=== PATIENT | female | born 1930 | race Caucasian/White ===

== ENCOUNTER 2017-01-09 18:55 | Inpatient (IN) | payer OTHER ==
[~2017-01-09] VITALS: Ht 152.4 cm; Wt 77.1 kg
[~2017-01-09 18:55] MED LIST: ANT12.5 PO; ASPIR 8181 MG; BACDS PO; DONEPEZIL HYDRO10 M2 PO; ENALAPRIL10 M1 PO; LAC PO; LASIX20 MG PO; LOT1C TOP; OMEPRAZOLE DR20 M1 PO; ONE-A-DAY WOMEN1 TAB PO; SIMVASTATIN40 M1 PO; STOOL SOFTENER100 MG PO
[2017-01-09 19:54] LABS: PLATELET COUNT 170 x10^3mcL (130-400)
[2017-01-09 19:58] LABS: BASOPHIL % 2.5 % (0-2); RED CELL DISTRIBUTION WIDTH 17.9 % (11.5-14.5)
[2017-01-09 20:07] LABS: CARBON DIOXIDE 16.9 mmol/L (21-32); CHLORIDE SERUM 101 mmol/L (98-107); GLUCOSE SERUM 133 mg/dL (74-106); POTASSIUM SERUM 4.7 mmol/L (3.5-5.1); SODIUM SERUM 137 mmol/L (136-145)
[2017-01-09 20:24] LABS: ALBUMIN 3.6 g/dL (3.4-5.0); ALKALINE PHOSPHATASE 153 U/L (46-116); ALT/SGPT 2157 U/L (14-59); BILIRUBIN TOTAL 2.1 mg/dL (0.20-1.00); TOTAL PROTEIN, SERUM 7.1 g/dL (6.4-8.2)
[2017-01-09] MEDS ORDERED: LIPI20 PO (21:05)
[2017-01-09 21:20] LABS: AST/SGOT 4390 U/L (15-37)
[2017-01-09 22:08] VITALS: BP 105/69
[2017-01-09 22:13] VITALS: BP 105/69
[2017-01-10 01:08] LABS: UA SPECIFIC GRAVITY >=1.030 (1.005-1.035); microscopic required? YES; urine erythrocyte TRACE (NEGATIVE)
[2017-01-10 01:31] LABS: CHOLESTEROL/HDL RATIO 4.5
[2017-01-10 01:34] LABS: T3 TOTAL 0.51 ng/mL
[2017-01-10 01:55] LABS: FREE T4 1.31 ng/dL (0.76-1.46); FREE THYROXINE INDEX 1.6 ug/dL (1.4-4.5); T4(THYROXINE) 4.7 ug/dL (4.7-13.3)
[2017-01-10 03:11] LABS: PLATELET COUNT 153 x10^3mcL (130-400)
[2017-01-10 03:18] LABS: RED CELL DISTRIBUTION WIDTH 16.5 % (11.5-14.5)
[2017-01-10 03:19] LABS: CALCIUM 8.2 mg/dL (8.5-10.1); CHLORIDE SERUM 105 mmol/L (98-107); CREATININE SERUM 2.7 mg/dL (0.6-1.0); GLUCOSE SERUM 110 mg/dL (74-106); MAGNESIUM 2.2 mg/dL (1.8-2.4); PHOSPHOROUS 5.5 mg/dL (2.5-4.9); POTASSIUM SERUM 4.8 mmol/L (3.5-5.1); SODIUM SERUM 137 mmol/L (136-145)
[2017-01-10 04:59] VITALS: BP 96/64
[2017-01-10 09:32] VITALS: BP 115/64
[2017-01-10 12:10] VITALS: BP 92/57
[2017-01-10 13:56] VITALS: BP 86/60
[2017-01-10 17:24] VITALS: BP 106/67
[2017-01-10 20:00] VITALS: BP 116/78
[2017-01-11 05:23] VITALS: BP 99/57
[2017-01-11 06:57] LABS: BASOPHIL % 0.2 % (0-2); PLATELET COUNT 152 x10^3mcL (130-400)
[2017-01-11 07:15] LABS: MAGNESIUM 2.5 mg/dL (1.8-2.4); PHOSPHOROUS 7.6 mg/dL (2.5-4.9)
[2017-01-11 07:53] LABS: CARBON DIOXIDE 15.5 mmol/L (21-32); CHLORIDE SERUM 102 mmol/L (98-107); GLUCOSE SERUM 88 mg/dL (74-106); POTASSIUM SERUM 4.9 mmol/L (3.5-5.1); SODIUM SERUM 138 mmol/L (136-145)
[2017-01-11 08:00] LABS: ALBUMIN 3.2 g/dL (3.4-5.0); ALKALINE PHOSPHATASE 145 U/L (46-116); ALT/SGPT 2274 U/L (14-59); BILIRUBIN TOTAL 2.4 mg/dL (0.20-1.00); CALCIUM 8.2 mg/dL (8.5-10.1); CREATININE SERUM 3.5 mg/dL (0.6-1.0); TOTAL PROTEIN, SERUM 6.3 g/dL (6.4-8.2)
[2017-01-11 08:43] LABS: AST/SGOT 3623 U/L (15-37)
[2017-01-11 09:41] VITALS: BP 92/47
[2017-01-11 13:06] VITALS: BP 97/60
[2017-01-11 17:46] VITALS: BP 84/53
[2017-01-11 18:21] VITALS: BP 90/56
[2017-01-11 22:02] VITALS: BP 108/56
[2017-01-12 05:47] VITALS: BP 91/54
[2017-01-12 06:16] LABS: CALCIUM 7.8 mg/dL (8.5-10.1); CARBON DIOXIDE 15.6 mmol/L (21-32); CHLORIDE SERUM 105 mmol/L (98-107); CREATININE SERUM 3.4 mg/dL (0.6-1.0); GLUCOSE SERUM 118 mg/dL (74-106); MAGNESIUM 2.4 mg/dL (1.8-2.4); PHOSPHOROUS 5.5 mg/dL (2.5-4.9); POTASSIUM SERUM 4.5 mmol/L (3.5-5.1); SODIUM SERUM 139 mmol/L (136-145)
[2017-01-12 07:39] LABS: BASOPHIL % 0.5 % (0-2)
[2017-01-12 07:40] LABS: PLATELET COUNT 115 x10^3mcL (130-400); RED CELL DISTRIBUTION WIDTH 18.1 % (11.5-14.5)
[2017-01-12 13:56] VITALS: BP 91/57
[2017-01-12 18:16] VITALS: BP 86/49
[2017-01-12 21:17] VITALS: BP 93/56
[2017-01-13 06:56] VITALS: BP 99/55
[2017-01-13 08:47] LABS: BASOPHIL % 0.4 % (0-2)
[2017-01-13 08:48] LABS: PLATELET COUNT 114 x10^3mcL (130-400); RED CELL DISTRIBUTION WIDTH 18.3 % (11.5-14.5)
[2017-01-13 09:03] LABS: CALCIUM 8.6 mg/dL (8.5-10.1); CARBON DIOXIDE 16.8 mmol/L (21-32); CHLORIDE SERUM 103 mmol/L (98-107); CREATININE SERUM 3.3 mg/dL (0.6-1.0); GLUCOSE SERUM 121 mg/dL (74-106); MAGNESIUM 2.6 mg/dL (1.8-2.4); POTASSIUM SERUM 4.6 mmol/L (3.5-5.1); SODIUM SERUM 135 mmol/L (136-145)
[2017-01-13 09:11] LABS: ALBUMIN 3.4 g/dL (3.4-5.0); BILIRUBIN DIRECT 1.14 mg/dL (0.0-0.2); BILIRUBIN TOTAL 1.7 mg/dL (0.20-1.00); TOTAL PROTEIN, SERUM 6.2 g/dL (6.4-8.2)
[2017-01-13 13:06] VITALS: BP 97/53
[2017-01-13 17:04] VITALS: BP 97/53
[2017-01-13 21:12] VITALS: BP 104/65
[2017-01-14 06:44] VITALS: BP 89/57
[2017-01-14 09:18] VITALS: BP 87/56
[2017-01-14 17:04] VITALS: BP 97/57
[2017-01-14 21:41] VITALS: BP 79/46
[2017-01-15 06:30] VITALS: BP 72/43
[2017-01-15 09:07] VITALS: BP 66/38
[2017-01-15 12:37] VITALS: BP 73/42
[2017-01-15 18:11] VITALS: BP 135/92; BP 69/30
[2017-01-15 22:09] VITALS: BP 69/41
[2017-01-16 06:32] VITALS: BP 73/39
[2017-01-16 08:51] VITALS: Ht 152.4 cm; Wt 77.1 kg
[2017-01-16 09:52] VITALS: BP 64/43
== END 2017-01-17 00:03 | disposition expired ==
LOC: ED 18:55 → DU 20:39
PROVIDERS: Family Medicine; ADMIT Family Medicine
DX: I50.43 Acute on chronic combined systolic (congestive) and diastolic (congestive) heart failure (principal); N17.0 Acute kidney failure with tubular necrosis; I21.4 Non-ST elevation (NSTEMI) myocardial infarction; E44.0 Moderate protein-calorie malnutrition; D68.69 Other thrombophilia; E87.4 Mixed disorder of acid-base balance; E87.1 Hypo-osmolality and hyponatremia; I67.89 Other cerebrovascular disease; I25.5 Ischemic cardiomyopathy; F03.90 Unspecified dementia, unspecified severity, without behavioral disturbance, psychotic disturbance, mood disturbance, and anxiety; E78.5 Hyperlipidemia, unspecified; R73.03 Prediabetes; I12.9 Hypertensive chronic kidney disease with stage 1 through stage 4 chronic kidney disease, or unspecified chronic kidney disease; N18.9 Chronic kidney disease, unspecified; Z68.32 Body mass index [BMI] 32.0-32.9, adult; E83.39 Other disorders of phosphorus metabolism; I71.4 Abdominal aortic aneurysm, without rupture; Z51.5 Encounter for palliative care; Z66 Do not resuscitate; K76.1 Chronic passive congestion of liver; K72.90 Hepatic failure, unspecified without coma; E83.41 Hypermagnesemia; D69.6 Thrombocytopenia, unspecified; K86.89 Other specified diseases of pancreas; K44.9 Diaphragmatic hernia without obstruction or gangrene; Z79.82 Long term (current) use of aspirin; Z95.1 Presence of aortocoronary bypass graft
CPT/HCPCS: 36600; 82962; 83880; 84439; 85378; 97110-GP; 97116-GP; 97530-GP; G0480; J1644; J1940; J2060; J2270; J2405; J7030; J8597; Q0092